=== PATIENT | female | born 1950 | race Caucasian/White ===

== ENCOUNTER 2023-08-21 06:00 | Outpatient (RCR) | payer MEDICARE, OTHER, SELFPAY | END 2023-08-23 23:59 | disposition home or self-care (01) | LOC: SPT 06:00 | PROVIDERS: Visit Provider Nurse Practitioner Family | DX: F44.4 Conversion disorder with motor symptom or deficit (principal) | CPT/HCPCS: 97161; 97530 ==

== ENCOUNTER 2023-08-24 06:00 | Outpatient (RCR) | payer MEDICARE, OTHER, SELFPAY | END 2023-09-23 23:59 | disposition home or self-care (01) | LOC: SPT 06:00 | PROVIDERS: Visit Provider Nurse Practitioner Family | DX: F44.4 Conversion disorder with motor symptom or deficit (principal) | CPT/HCPCS: 97110; 97140; 97530 ==

== ENCOUNTER 2023-09-12 12:27 | Outpatient (CLI) | payer MEDICARE, OTHER, SELFPAY ==
--- NOTE | 2023-09-12 | MM_ITS ---
WS: [id number] BILATERAL SCREENING DIGITAL TOMOSYNTHESIS MAMMOGRAM WITH CAD HISTORY: SCREENING COMPARISON: 06/17/2019, 06/17/2018 Bilateral CC and MLO views with tomosynthesis and synthetic mammography submitted. Computer aided det ection analyzed. Breast composition: The breasts are heterogeneously dense, which may obscure small masses. No suspici ous masses, microcalcifications or architectural distortion. Scattered asymmetries and calcifications and masses within each breast are stable. IMPRESSION: MM/[place] [id number] BI-RADS: 2-Benign FOLLOW UP: 1 Year Follow-up
== END 2023-09-12 12:28 | disposition home or self-care (01) ==
LOC: MOBLMAM 12:34
PROVIDERS: Visit Provider Nurse Practitioner Family
DX: Z12.31 Encounter for screening mammogram for malignant neoplasm of breast (principal)
CPT/HCPCS: 77063; 77067

== ENCOUNTER 2023-09-24 06:00 | Outpatient (RCR) | payer MEDICARE, OTHER, SELFPAY | END 2023-10-21 12:15 | disposition home or self-care (01) | LOC: SPT 06:00 | PROVIDERS: Visit Provider Nurse Practitioner Family | DX: F44.4 Conversion disorder with motor symptom or deficit (principal) | CPT/HCPCS: 97140 ==

== ENCOUNTER 2024-03-22 06:00 | Outpatient (RCR) | payer MEDICARE, OTHER, SELFPAY | END 2024-03-23 23:59 | disposition home or self-care (01) | LOC: SPT 06:00 | PROVIDERS: Visit Provider Nurse Practitioner Family | DX: M54.30 Sciatica, unspecified side (principal) | CPT/HCPCS: 97140; 97161 ==

== ENCOUNTER 2024-03-24 06:00 | Outpatient (RCR) | payer MEDICARE, OTHER, SELFPAY | END 2024-04-23 23:59 | disposition home or self-care (01) | LOC: SPT 06:00 | PROVIDERS: Visit Provider Nurse Practitioner Family | DX: M54.30 Sciatica, unspecified side (principal) | CPT/HCPCS: 97110; 97116; 97140 ==

== ENCOUNTER 2024-04-24 06:00 | Outpatient (RCR) | payer MEDICARE, OTHER, SELFPAY | END 2024-05-23 23:59 | disposition home or self-care (01) | LOC: SPT 06:00 | PROVIDERS: Visit Provider Nurse Practitioner Family | DX: M54.50 Low back pain, unspecified (principal); G89.29 Other chronic pain; R26.89 Other abnormalities of gait and mobility | CPT/HCPCS: 97110 ==

== ENCOUNTER 2024-05-24 06:00 | Outpatient (RCR) | payer MEDICARE, OTHER, SELFPAY | END 2024-06-23 23:59 | disposition home or self-care (01) | LOC: SPT 06:00 | PROVIDERS: PCP Nurse Practitioner Family; Visit Provider Nurse Practitioner Family | DX: M54.30 Sciatica, unspecified side (principal) | CPT/HCPCS: 20560; 97110 ==

== ENCOUNTER → 2024-06-14 12:11 | Outpatient (BNVA) | payer MEDICARE, OTHER, SELFPAY | PROVIDERS: PCP Nurse Practitioner Family; Visit Provider Specialist | DX: M17.12 Unilateral primary osteoarthritis, left knee (principal) | CPT/HCPCS: 36415; 73560; 73565; 80053; 81001; 83036; 85025 ==

== ENCOUNTER 2024-06-24 06:00 | Outpatient (RCR) | payer MEDICARE, OTHER, SELFPAY | END 2024-07-24 23:59 | disposition home or self-care (01) | LOC: SPT 06:00 | PROVIDERS: PCP Nurse Practitioner Family; Visit Provider Nurse Practitioner Family | DX: M54.30 Sciatica, unspecified side (principal) | CPT/HCPCS: 97110 ==

== ENCOUNTER 2024-07-25 06:00 | Outpatient (RCR) | payer MEDICARE, SELFPAY | END 2024-08-23 23:59 | disposition home or self-care (01) | LOC: SPT 06:00 | PROVIDERS: PCP Nurse Practitioner Family; Visit Provider Nurse Practitioner Family | DX: M54.30 Sciatica, unspecified side (principal) | CPT/HCPCS: 97110; 97140 ==

== ENCOUNTER 2024-08-24 06:00 | Outpatient (RCR) | payer MEDICARE, SELFPAY | END 2024-09-23 23:59 | disposition home or self-care (01) | LOC: SPT 06:00 | PROVIDERS: PCP Nurse Practitioner Family; Visit Provider Nurse Practitioner Family | DX: M54.30 Sciatica, unspecified side (principal) | CPT/HCPCS: 97110; 97140; 97530 ==

== ENCOUNTER → 2024-09-20 11:16 | Outpatient (BNVA) | payer MEDICARE, OTHER, SELFPAY | PROVIDERS: PCP Nurse Practitioner Family; Visit Provider Family Medicine | DX: Z01.818 Encounter for other preprocedural examination (principal); I49.8 Other specified cardiac arrhythmias | CPT/HCPCS: 81003; 93005 ==

== ENCOUNTER 2024-09-24 06:00 | Outpatient (RCR) | payer MEDICARE, OTHER, SELFPAY | END 2024-10-23 23:59 | disposition home or self-care (01) | LOC: SPT 06:00 | PROVIDERS: PCP Nurse Practitioner Family; Visit Provider Nurse Practitioner Family | DX: M54.30 Sciatica, unspecified side (principal) | CPT/HCPCS: 97140 ==

== ENCOUNTER 2024-10-05 08:33 | Outpatient (CLI) | payer MEDICARE, SELFPAY ==
--- NOTE | 2024-10-05 08:35 | CT_ITS ---
WS: [id number] CT LEFT knee, noncontrast HISTORY: per [facility] protocol TECHNIQUE: Protocol for [facility] total knee replacement has been obtained. This includes axial imaging th rough the LEFT hip, LEFT knee and LEFT ankle. DLP: 993.64 mGy.cm COMPARISON: Radiograph 06/14/2024 Pelvis: No bone destruction. Calcified fibroid in the posterior uterus. LEFT knee: Moderate to advanced tricompartment osteoarthritis. Marginal osteophytes. No fractures or destructive bone lesions. LEFT ankle: Negative. CT/CT knee [facility] [id number] IMPRESSION: CT imaging provided for [facility] robotic total knee replacement.
== END 2024-10-05 08:34 | disposition home or self-care (01) ==
LOC: OR 08:33
PROVIDERS: PCP Nurse Practitioner Family; Visit Provider Specialist
DX: M17.12 Unilateral primary osteoarthritis, left knee (principal); M25.762 Osteophyte, left knee; Z01.818 Encounter for other preprocedural examination
CPT/HCPCS: 73700; 80053; 85025

== ENCOUNTER → 2024-10-06 13:27 | Outpatient (BNVA) | payer MEDICARE, SELFPAY | PROVIDERS: PCP Nurse Practitioner Family; Visit Provider Specialist | DX: M17.12 Unilateral primary osteoarthritis, left knee (principal) | CPT/HCPCS: 73560; 73565; 99214 ==

== ENCOUNTER 2024-10-07 09:18 | Outpatient (CLI) | payer MEDICARE, OTHER, SELFPAY ==
--- NOTE | 2024-10-07 09:30 | MM_ITS ---
WS: [id number] BILATERAL SCREENING DIGITAL TOMOSYNTHESIS MAMMOGRAM WITH CAD HISTORY: SCREENING COMPARISON: 09/12/2023, 06/17/2019 Bilateral CC and MLO views with tomosynthesis and synthetic mammography submitted. Computer aided det ection analyzed. Breast composition: The breasts are heterogeneously dense, which may obscure small masses. No suspici ous masses, microcalcifications or architectural distortion. Long-term stability partially obscured m ass in the lateral RIGHT breast. Benign calcifications in each breast. MM/MM scr BI tomosynthesis [id number] IMPRESSION: BI-RADS: 2 - Benign FOLLOW UP: 1 Year Follow-up
== END 2024-10-07 09:19 | disposition home or self-care (01) ==
PROVIDERS: PCP Nurse Practitioner Family; Visit Provider Nurse Practitioner Family
DX: Z12.31 Encounter for screening mammogram for malignant neoplasm of breast (principal); R92.333 Mammographic heterogeneous density, bilateral breasts; R92.1 Mammographic calcification found on diagnostic imaging of breast
CPT/HCPCS: 77063; 77067

== ENCOUNTER 2024-10-12 14:46 | Observation (INO) | payer MEDICARE, OTHER, SELFPAY ==
[2024-10-12] VITALS (16 sets, daily range): BP systolic 101–150; BP diastolic 61–87; PULSE 59–94; RESP 14–20; TEMP 35.8–36.8; O2SAT 93–99; BMI 35.3
[2024-10-12 10:01] LABS: Glucose Point of Care 99 mg/dL (70-110)
[2024-10-12] MEDS: sodium chloride 0.9% 1,000 ML 30 ML IV (10:15)
--- NOTE | 2024-10-12 10:29 | ANES.PREANE2 ---
Pre-Anesthetic Assessment Height/Weight: Height 1.68 m Weight 99.337 kg Temp Pulse Resp BP Pulse Ox O2 Del Method 97.6 F 76 16 128/86 95 Room Air 10/12/24 09:17 10/12/24 09:17 10/12/24 09:17 10/12/24 09:17 10/12/24 09:17 10/12/24 09:42 Operation Date: 10/12/24 11:05 Proposed Procedures p Preston Robot Total Knee Arthroplasty(Left) - Carolina Fam MD Operation Date: 10/12/24 10:55 Proposed Procedures p Preston Robot Total Knee Arthroplasty(Not Applicable) - Carolina Fam MD Familial anesthetic complications: none Was Beta Dawit taken within 24 hours: N/A Was Clonidine taken within 24 hours: N/A Last intake: Intake Last Liquid Date 10/11/24 Last Liquid Time 23:55 Last Solid Date 10/11/24 Last Solid Time 18:30 Social No alcohol and No tobacco Exam alert, oriented x 3, clear to auscultation bilaterally and regular rate & rhythm Airway Mallampati: Class II CV/HEM Hypertension GI Gastroesophageal Reflux Disease Metabolic Diabetes Mellitus, Morbid Obesity and Thyroid Disease Anesthetic Plan ASA status: 3 Anesthesia: Regional (specify below) Risk of > 500 ml blood loss (7ml/kg in children): No Medications/Allergies Home Medications Medication Instructions Recorded Confirmed Last Taken Type levothyroxine 150 mcg capsule 150 mcg PO DAILY 06/14/24 10/11/24 10/11/24 History losartan 50 mg tablet 50 mg PO DAILY 06/14/24 10/11/24 10/11/24 History metformin 500 mg tablet 500 mg PO BID 06/14/24 10/11/24 10/11/24 History olmesartan 5 mg tablet 5 mg PO DAILY 06/14/24 10/11/24 10/11/24 History omeprazole 40 mg capsule,delayed 40 mg PO BID 06/14/24 10/11/24 10/11/24 History release potassium chloride 10 mEq oral 10 meq PO DAILY 06/14/24 10/11/24 10/11/24 History packet aspirin 81 mg tablet,delayed 81 mg PO DAILY 09/20/24 10/11/24 10/06/24 History release Allergies Allergy/AdvReac Type Severity Reaction Status Date / Time Opioids - Morphine Analogues Allergy Mild rash Verified 10/11/24 12:38 oxycodone [From Percocet] Allergy Mild ADR-Gastrointestinal Verified 10/11/24 12:38 Upset hydrocodone Allergy ADR/ALGY-Pa Verified 10/12/24 09:20 lpitations codine Allergy Mild ADR-Chest Uncoded 10/06/24 13:09 Pain tramadol Allergy Mild ADR-Gastrointestinal Uncoded 10/06/24 13:09 Upset [facility] Anesthesia Social History Smoking and tobacco/nicotine status: never used tobacco/nicotine Data Anesthesia Cardiac Studies: No Data to Display
--- NOTE | 2024-10-12 10:29 | ANES.PROC ---
Anesthesia Procedures Procedure/Date: 10/12/24 Nerve Block ^: Nerve Block 1: Main Anesthesia: spinal anesthesia block Time Out Performed: Yes Consent: requested by attending/covering physician, from patient, from other, risks and benefits reviewed and patient agrees to proceed Nerve block location: adductor canal (L) Anesthesia monitors applied: pulse oximetry, EKG, BP cuff and oxygen Nerve block position: supine Anesthetic Used: ropivicaine 0.5% (20 ml) and with decadron (3 mg) Ultrasound used to: recognize landmarks and visualize and ID femerol nerve Interscalene/Femoral BLK: 4 stimuplex 21 g needle used for position and inplane approach, visualize local anesthetic spread and no vascular puncture identified Injection: neg aspiration of heme Patient Tolerated Procedure: well Complications: none
[2024-10-12] MEDS: acetaminophen 1,000 MG/100 ML PIGGYBACK 400 MG IV ×2 (10:32→17:12)
[2024-10-12] MEDS: CELEcoxib 200 mg Capsule 400 MG PO (10:33)
[2024-10-12] MEDS: gabapentin 300 mg Capsule PO (10:35)
--- NOTE | 2024-10-12 10:39 | SUR.PREOP ---
LEFT ADDUCTOR NERVE BLOCK PERFORMED BY DOCTOR Webster USING 20ml OF 5% ROPIVACAINE WITH 3mg OF DECADRON. PT ON DOCUMENT MANAGEMENT TECHNICIAN SHOWING NSR, AND O2 AT 2L/M VIA NASAL CANNULA.
--- NOTE | 2024-10-12 10:55 | W.PM.OPSUD ---
Surgery/Procedure H&P Update DATE OF PROCEDURE: October 12, 2024 DATE H&P PERFORMED: 10/06/24 H&P UPDATE INFORMATION: I have reviewed H&P completed within last 30 days, I have examined patient prior to procedure, No changes to prior documentation and H&P is in [facility] EMR on date indicated PRIMARY INDICATION FOR PROCEDURE: Primary osteoarthritis left knee PLANNED PROCEDURE: Operation Date: 10/12/24 11:05 Proposed Procedures p Preston Robot Total Knee Arthroplasty(Left) - Carolina Fam MD Operation Date: 10/12/24 10:55 Proposed Procedures p Preston Robot Total Knee Arthroplasty(Not Applicable) - Carolina Fam MD Related Problem List Diagnoses (1) Primary osteoarthritis of left knee:
[2024-10-12] MEDS: midazolam 1 mg/mL INJ 2 mL 2 MG IVP (11:06)
[2024-10-12] MEDS: ceFAZolin 2,000 mg SDV 2000 MG IVP ×2 (12:00→20:01)
[2024-10-12] MEDS: tranexamic acid 1,000 mg/10mL SDV 1000 MG IV (12:38)
[2024-10-12] MEDS: ceFAZolin 1,000 mg SDV 2000 MG IRRIGATION (13:09)
[2024-10-12] MEDS: VANCOMYCIN ADD-Vantage 1,000 MG VIAL 1000 MG XX (13:10)
[2024-10-12] MEDS: BUPivacaine liposome 13.3 mg/mL SDV 20 mL 266 MG XX (13:11)
--- NOTE | 2024-10-12 14:53 | XR_ITS ---
WS: [id number] Exam: XR knee LT 1-2V [id number] Date/Time of Exam: 10/12/2024 3:14 PM Reason For Exam: Left total knee LEFT total knee arthroplasty is in place in satisfactory position. Postoperative changes in the adjac ent soft tissues. XR/XR knee LT 1-2V [id number] IMPRESSION: 1. LEFT total knee replacement in satisfactory position.
--- NOTE | 2024-10-12 14:56 | PM.OP ---
Operative Report Date of procedure: October 12, 2024 Pre-op diagnosis: Primary osteoarthritis left knee with flexion contracture Post-op diagnosis: Primary osteoarthritis left knee with flexion contracture Post-op findings: Primary osteoarthritis left knee with flexion contracture and osteopenia Procedure done: Left total knee arthroplasty with Preston guidance with lateral release Implants: The Jeaneth total knee system with a size 4 triathlon beaded cruciate retaining femur left, a triathlon titanium tibial component size 4 beaded, a triathlon X3 tibial bearing CS insert size 4x12 mm and a beaded triathlon titanium asymmetric patella size 35 x 10 mm Specimens removed/disposition: Bone, disposed of Pathology: None Surgeon: Carolina Fam MD Commercial Sales Representative: Lizzeth Ruiz Commercial Sales Representative: Whose services were required for retraction, positioning, intraoperative exposure, and closure Anesthesia: MAC and Spinal (With preoperative adductor block, ASA 3) Estimated blood loss (mL): 100 Tourniquet time (min): 0 (Not utilized) IV fluids (mL): 800 Urine output (mL): 200 Complications: None Findings: Severe degenerative osteoarthritis with varus deformity and flexion contracture. Condition: stable Disposition: PACU (Then admit to the hospital under observation status for postoperative rehabilitation and pain management) Brief History: This 74-year-old woman presented to the office with complaints of left knee pain. She is status post right total knee arthroplasty remotely, and she has concerns regarding proceeding. She has been unresponsive to conservative measures and has had significant limitations in her activities of daily living. After discussion, she wished to proceed with left total knee arthroplasty. Risks and complications were discussed with her. Consents were signed. Procedure: The patient was brought to the operating theater, and after undergoing spinal anesthesia with MAC, ASA 3, which followed preoperative adductor block, the left lower extremity was prepped with Dura-Prep and draped in usual fashion following placement of a tourniquet high on the leg. The leg was then draped free.? Tourniquet was not elevated throughout the surgical procedure. Prior to commencement of the procedure, a surgical pause was performed, and at the time of the surgical pause, we confirmed the site and side of surgery. Additionally, we confirmed the appropriate and timely administration of preoperative antibiotics, Ancef 2 g.? The availability of equipment was confirmed, and the patient's identity was verbalized as well. Following the surgical pause, an incision was made centering over the patella continuing proximally and distally as necessary to allow access to the knee joint. Dissection continued through skin and soft tissues using a scalpel. Hemostasis was obtained using electrocautery. The skin incision was followed by a median parapatellar arthrotomy. The leg was extended and the patella was able to be displaced laterally.? Appropriate arrays and markers were placed in appropriate position for use of the Preston.? Preoperative planning had been accomplished and was discussed in detail with the [facility] training representative.? Intraoperative mapping of the femur and tibia was accomplished after the arrays were placed.? Internal markers were also placed.? Once we had accomplished the Preston mapping, we began the appropriate resections for placement of the prosthesis.? The plan was for a cruciate retaining left total knee arthroplasty. Once appropriate mapping had been accomplished retraction was established using manual retraction by surgical technicians and also the [facility] leg positioner and retractors.? The knee was evaluated.? There was significant osteoarthritic change as well as a significant flexion contracture and severe varus deformity.? Appropriate bone resection was accomplished using the Preston.? The femur was sized to a size 4.? Following femoral cuts, attention was directed to the tibia.? Osteophytes were removed prior to this portion of the procedure.? We had performed a medial release at the beginning of the procedure to allow for placement of the array.? Proximal tibia was evaluated, and it was felt that appropriate size for the tibia was a size 4.? Tray was noted to fit nicely with good coverage.? Rim fit was accomplished with the size 4. A trial reduction was accomplished after osteophytes have been removed as well as the medial and lateral menisci.? We had removed the anterior cruciate ligament at the beginning of the case and preserved the posterior cruciate ligament.? Trial reduction was accomplished with a size 4 femoral cruciate retaining component, a size 4 tibial tray and a size 4 CS tibial bearing insert which was 9 mm. We increased this to a size 11 mm for trial and actual implant was a size 12 mm tibial insert. Alignment was felt to be appropriate as well.? Lateral release was required due to patellar tracking. Trial components were removed after the femur had been drilled.? Prior to removal of the tibial tray which had been pinned in position with appropriate rotation as determined by the Preston plan, we broached the tibia.? Subsequently, the 4 drill holes were made for the prosthetic component.? All trial components were removed, and the wound was irrigated.? Plans were made for insertion of the prosthetic components.? Prior to this, the patella was manually prepared.? After resection of the articular surface with the jogging system, it was measured and measured a 35 mm patella.? We resected approximately 10 mm of patella.? Patellar height was restored with the patellar component. Once again, the wound was irrigated. The Tritanium tibia was impacted into position.? The beaded femur was then impacted into position in a cementless fashion. The CS tibial insert was placed prior to placement of the femoral component. The patella was pressed into position with a patellar clamp.? Exparel was injected about the components deep and superficially.? The knee was then copiously irrigated with betadine and saline and suctioned dry. Attention was then directed to closure. Closure was accomplished with 0 Vicryl in the fascial tissues.? The suture line of 0 Vicryl was supplemented with strata fix, #1, with a running suture from proximal to distal and a second running stitch from distal to proximal.? This was followed by Surgiflo and vancomycin powder.? Following this, a 2-0 Strata Fix was used in the subcutaneous tissues, and the skin was closed with 3-0 Strata fix.? Care was taken to assure an excellent subcutaneous as well as skin closure.? A sterile dressing was then placed consisting of Dermabond Prineo, OpSite, ABD, sterile soft roll, and an Brett wrap including over the foot. The patient was returned the Recovery Room in a satisfactory condition. X-rays were obtained and reviewed there.? The patient will be discharged to the floor for postoperative rehabilitation and pain management. Related Problem List Diagnoses (1) Primary osteoarthritis of left knee:
--- NOTE | 2024-10-12 15:34 | PC.NURSE ---
1525 - left shoulder pain reported to anesthesa - pt assessed - per anesthesia pain d/t positioning - ice pack provided
--- NOTE | 2024-10-12 15:45 | ANE.PACU2 ---
Inpatient post-anesthesia follow up: Airway intact: Yes Vital signs: Temperature 97.6 F Pulse Rate 63 Respiratory Rate 19 Blood Pressure 114/68 Pulse Oximetry 98 Oxygen Delivery Me thod Nasal Cannula Oxygen Flow Rate 3 Fraction of Inspir ed Oxygen Hydration adequate: Yes Nausea and vomiting: No Pain level: 1 Mental status: Baseline
--- NOTE | 2024-10-12 15:56 | PC.NURSE ---
1551- Accepted onto floor per Lizzeth - Left knee dressing c/d/i with pt unable to wiggle toes - ppp - 1st ice on knee - VS 110/74 - pulse 60 - 02 95% 2LNC - temp 97.5 - family at side
[2024-10-12] MEDS: metformin 500 mg Tablet PO (17:01)
[2024-10-12] MEDS: sennosides-docusate Tablet 2 TAB PO (17:01)
[2024-10-12] MEDS: calcium carbonate 500 mg Chew Tablet 1000 MG PO ×2 (17:01→17:04)
[2024-10-12] MEDS: oxyCODONE 5 mg IR Tab/Cap PO ×2 (17:01→21:23)
[2024-10-12] MEDS: pantoprazole DR 40 mg Tablet PO (17:01)
[2024-10-12] MEDS: mupirocin oint 22 gm 1 APPLIC NASAL (17:01)
[2024-10-12] MEDS: iron polysaccharide complex 150 mg Capsule PO (17:01)
[2024-10-12] MEDS: sodium chloride 0.9% 1,000 ML 100 ML IV (17:02)
[2024-10-12] MEDS: chlorhexidine gluconate 0.12% Btl 473 mL 30 ML MUCOUS MEM ×2 (17:10→20:03)
--- NOTE | 2024-10-12 18:10 | PC.NURSE ---
Pt states that she is in severe pain. She requests Fentanyl in the IV. This RN educates patient on post-op pain management. Pt states she wants to be doped up and not feel a thing. Lizzeth Ruiz and Dr. Fam round on the pt and educate on pain management. Plan is to continue with current orders.
[2024-10-12] MEDS: ondansetron 2 mg/ML SDV 2 mL 4 MG IVP (20:01)
[2024-10-12] MEDS: tranexamic acid 1,000 MG/100 ML PREMIX 600 MG IV (20:02)
[2024-10-12] MEDS: TRAMadol 50 mg Tablet PO (20:02)
[2024-10-13] VITALS (10 sets, daily range): BP systolic 114–130; BP diastolic 52–72; PULSE 64–76; RESP 16–18; TEMP 35.7–36.5; O2SAT 93–98
[2024-10-13] MEDS: oxyCODONE 5 mg IR Tab/Cap PO ×4 (01:21→13:39)
[2024-10-13] MEDS: sodium chloride 0.9% 1,000 ML 100 ML IV (01:23)
[2024-10-13] MEDS: acetaminophen 1,000 MG/100 ML PIGGYBACK 400 MG IV ×2 (01:24→09:39)
[2024-10-13] MEDS: ceFAZolin 2,000 mg SDV 2000 MG IVP (05:22)
[2024-10-13 05:42] LABS: Basophils % 0.3 %; Eosinophils % 0.1 %; Lymphocytes # 0.6 10^3/uL (0.8-4.8); Lymphocytes % 5.9 %; Mean Corpuscular HGB Conc 31.8 g/dL (30-55); Mean Corpuscular Hemoglobin 26.9 pg (27-33); Mean Corpuscular Volume 84.8 fl (85-98); Mean Platelet Volume 9.9 fL (7.4-10.4); Monocytes # 0.8 10^3/uL (0.2-0.9); Monocytes % 8.2 %; Neutrophils # 8.58 10^3/uL (1.8-7.7); Neutrophils % 85.2 %; Nucleated Red Blood Cells % 0 %; Platelet Count 186 10^3/cmm (157-399); Red Blood Count 4.01 10^6/uL (3.85-5.65); Red Cell Distribution Width 13.3 % (12.1-15.1); White Blood Count 10.07 10^3/uL (3.29-11.43)
[2024-10-13 06:13] LABS: Blood Urea Nitrogen 14 mg/dL (8-23); Calcium 8.5 mg/dL (8.5-10.5); Carbon Dioxide 24 mmol/L (22-29); Chloride 109 mmol/L (98-107); Creatinine Clr Calc Pharmacy 74.4649; Glucose 157 mg/dL (65-115); Osmolality Calculated 298 mOsm/kg (285-295); Sodium 142 mmol/L (136-145)
[2024-10-13] MEDS: cholecalciferol (vitamin D3) 1,000 unit Tablet 1000 UNIT PO (08:05)
[2024-10-13] MEDS: metformin 500 mg Tablet PO (08:05)
[2024-10-13] MEDS: TRAMadol 50 mg Tablet PO (08:05)
[2024-10-13] MEDS: pantoprazole DR 40 mg Tablet PO (08:05)
[2024-10-13] MEDS: potassium chloride ER 10 mEq Tablet PO (08:06)
[2024-10-13] MEDS: iron polysaccharide complex 150 mg Capsule PO (08:06)
[2024-10-13] MEDS: sennosides-docusate Tablet 2 TAB PO (08:06)
[2024-10-13] MEDS: levothyroxine 150 mcg Tablet PO (08:06)
[2024-10-13] MEDS: losartan 50 mg Tablet PO (08:06)
[2024-10-13] MEDS: multivitamin therapeutic Tablet 1 TAB PO (08:06)
[2024-10-13] MEDS: aspirin 325 mg EC Tablet PO (08:06)
[2024-10-13] MEDS: ondansetron 2 mg/ML SDV 2 mL 4 MG IVP (09:39)
--- NOTE | 2024-10-13 09:54 | PC.CHAP ---
Pastoral Care Encounter/Spiritual Assessment Type of Contact [] Declined hunting guide visit [] Patient/Family/Request visit [] Outpatient visit [] Follow-up visit [] Physician referral [] Code/Alert [x] Routine visit [] Staff referral [] Actively dying [] Patient sleeping [x] Family support [] [] Out of room [] Palliative care [] [] Receiving care in room [] Pre-surgical visit [] Trauma [] Long length of stay [] ICU visit [] Other: Relational/Emotional Strength [x] Patient feels connected with others/family/visitors/staff [] Distress [] Loneliness/isolation [] Abandonment Spirituality of Patient [x] Person of Yandy [] Attends Mosque of their Yandy [x] Believes in Prayer [] Reads Bible or Episcopalian materials [] There are Spiritual issues to be addressed [employer] Technology Teacher Interventions [x] Prayer [x] Active listening [] Non-anxious presence [x] Spiritual/emotional support [] Crisis/trauma care [] Spiritual counseling [] Bereavement support [] Provided bereavement packet [] Provided Bible/devotional materials [] Provided toy/stuffed animal, coloring book to patient or family member [] Provided Communion [] Anointing/[place] [] Salvation [x] Completed spiritual assessment [] Other: Impact on Illness or Injury [] Angry [] Fearful [] Anxious [] Often cries [] Exhaustion [] Unable to work [] Unable to attend temple [] Unable to walk/stand [] Unable to read [] Unable to drive [] Unable to eat/drink [] Unable to sleep [] Unable to be with family [] Patient intubated [] Other: Summary Time spent with patient 5 min
--- NOTE | 2024-10-13 13:58 | P.DS_ITS ---
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 using cement: Status: Acute Permanent problem details: Date of procedure: October 12, 2024 Diagnosis: Primary osteoarthritis left knee with flexion contracture Procedure done: Left total knee arthroplasty with Preston guidance with lateral release Implants: The HitchedPic total knee system with a size 4 triathlon beaded cruciate retaining femur left, a triathlon titanium tibial component size 4 beaded, a triathlon X3 tibial bearing CS insert size 4x12 mm and a beaded triathlon titanium asymmetric patella size 35 x 10 mm Reason for Visit Reason for Visit: Primary osteoarthritis of left knee Brief History: This 74-year-old woman presented to the office with complaints of left knee pain. She is status post right total knee arthroplasty remotely, and she has concerns regarding proceeding. She has been unresponsive to conservative measures and has had significant limitations in her activities of daily living. After discussion, she wished to proceed with left total knee arthroplasty. Ri sks and complications were discussed with her. Consents were signed. Hospital Course Hospital Course This 74-year-old woman was admitted for same-day surgery in the form of left total knee arthroplasty. She was admitted to the floor postoperatively under observation status. She did have a significant amount of pain postoperatively, but she describes significant pain with her prior total knee arthroplasty as well. This was under control by the first postoperative day. She worked with physical therapy. She was up in a chair. Plans were made for her discharge home. There was no evidence of DVT and no evidence of complication. Physical Exam Const: COMMON NORMALS: no acute distress, average body habitus, patient oriented x3 and alert GENERAL APPEARANCE: cooperative and comfortable ORIENTATION/CONSCIOUSNESS: Yes awake HENMT: COMMON NORMALS: normocephalic and atraumatic HEAD & SCALP: normocephalic and atraumatic Eye: GENERAL EYE: appearance normal, both eyes and all related structures Chest: COMMONS NORMALS: normal inspection of the chest Resp: COMMON NORMALS: normal respiratory effort EFFORT & INSPECTION: Yes able to speak in complete sentences and Yes symmetric chest movement Extremity: LEFT LOWER EXTREMITY: Yes knee joint (Brett wrap is removed. Dressing is dry and intact.) Left knee: Yes inspection (No significant swelling.), Yes ROM (Not evaluated.) and Yes neurovascular exam (Intact distally.) Neuro: COMMON NORMALS: patient oriented x3 SENSORIUM/ORIENTATION: Yes alert Psych: COMMON NORMALS: mental status grossly normal APPEARANCE: Yes grossly normal ATTITUDE: Yes calm and Yes engaged ATTENTION/CONCENTRATION: Yes attention grossly intact Skin: COMMON NORMALS: no rashes or lesions noted GENERAL SKIN EXAM: no rashes or lesions noted Urinary Catheter Management: Reis: Cath Placed During This Visit: yes, but has since been removed by the nurse Reason for Continuing Indwelling Catheter: Other Urinary Catheter Date of Insertion: 10/12/24 Urinary Catheter Time of Insertion: 12:21 Date Urinary Catheter Removed: 10/13/24 Time Urinary Catheter Discontinued: 06:55 Discharge Data Studies Completed and Pending Completed Studies During Hospitalization Category Date Time Status XR knee LT 1-2V [id number] Urgent Exams 10/12/24 14:53 Completed Radiology Impressions Knee X-Ray 10/12/24 14:53 IMPRESSION: 1. LEFT total knee replacement in satisfactory position. Laboratory Results WBC 10.07 10^3/uL (3.29-11.43) 10/13/24 05:24 RBC 4.01 10^6/uL (3.85-5.65) 10/13/24 05:24 Hgb 10.80 g/dL (11.27-16.99) L 10/13/24 05:24 Hct 34.0 % (36-47) L 10/13/24 05:24 MCV 84.8 fl (85-98) L 10/13/24 05:24 MCH 26.9 pg (27-33) L 10/13/24 05:24 MCHC 31.8 g/dL (30-55) 10/13/24 05:24 RDW 13.3 % (12.1-15.1) 10/13/24 05:24 Plt Count 186 10^3/cmm (157-399) 10/13/24 05:24 MPV 9.9 fL (7.4-10.4) 10/13/24 05:24 Neut % (Auto) 85.2 % 10/13/24 05:24 Lymph % (Auto) 5.9 % 10/13/24 05:24 Story % (Auto) 8.2 % 10/13/24 05:24 Eos % (Auto) 0.1 % 10/13/24 05:24 Baso % (Auto) 0.3 % 10/13/24 05:24 Neut # (Auto) 8.58 10^3/uL (1.8-7.7) H 10/13/24 05:24 Lymph # (Auto) 0.6 10^3/uL (0.8-4.8) L 10/13/24 05:24 Story # (Auto) 0.8 10^3/uL (0.2-0.9) 10/13/24 05:24 Eos # (Auto) 0.0 10^3/uL (0.0-0.8) 10/13/24 05:24 Baso # (Auto) 0.0 10^3/uL (0.0-0.1) 10/13/24 05:24 Nucleated RBC % (auto) 0 % 10/13/24 05:24 Nucleated RBCs # 0.0 /100WBC 10/13/24 05:24 Sodium 142 mmol/L (136-145) 10/13/24 05:24 Potassium 5.0 mmol/L (3.5-5.1) 10/13/24 05:24 Chloride 109 mmol/L (98-107) H 10/13/24 05:24 Carbon Dioxide 24 mmol/L (22-29) 10/13/24 05:24 Anion Gap 14.0 (5-19) 10/13/24 05:24 BUN 14 mg/dL (8-23) 10/13/24 05:24 Creatinine 0.8 mg/dL (0.5-0.9) 10/13/24 05:24 GFR Calculation Not Reportable 10/13/24 05:24 Glucose 157 mg/dL (65-115) H 10/13/24 05:24 POC Glucose 99 mg/dL (70-110) 10/12/24 09:54 Calculated Osmolality 298 mOsm/kg (285-295) H 10/13/24 05:24 Calcium 8.5 mg/dL (8.5-10.5) 10/13/24 05:24 Vitals Last Vital Signs Temp 97.7 F 10/13/24 11:33 Pulse 64 10/13/24 11:33 Resp 16 10/13/24 13:39 BP 125/52 10/13/24 11:33 Pulse Ox 97 10/13/24 11:33 O2 Del Method Room Air 10/13/24 11:33 O2 Flow Rate 3 10/12/24 15:42 Discharge Plan Discharge Patient Disposition: Home Health Service Condition: Stable Prescriptions: New acetaminophen 500 mg Tablet 1,000 mg PO Q8H 15 Days Qty: 90 0RF aspirin 325 mg Tablet,Delayed Release (Dr/Ec) 325 mg PO DAILY 30 Days Qty: 30 0RF oxycodone 5 mg Tablet 5 - 10 mg PO Q4H PRN (Reason: Moderate To Severe Pain) 7 Days Qty: 40 0RF Continued potassium chloride 10 mEq packet 10 meq PO DAILY metformin 500 mg tablet 500 mg PO BID levothyroxine 150 mcg capsule 150 mcg PO DAILY losartan 50 mg tablet 50 mg PO DAILY olmesartan 5 mg tablet 5 mg PO DAILY omeprazole 40 mg capsule,delayed release(DR/EC) 40 mg PO BID aspirin 81 mg tablet,delayed release (DR/EC) 81 mg PO DAILY Discharge Orders: Discharge Order (Routine); Ordered 10/13/24 Ordered By: Carolina Fam Other Ambulatory Orders: DME: [facility] (Order) Location: None Selected Ordered By: Carolina Fam Referrals: [facility] [Outside] Carolina Fam MD [Physician] - 10/27/24 11:00 am Keaton Diez [Primary Care Provider] - 10/15/24 3:10 pm () Discharge Diet: Advance as tolerated and Usual diet Discharge Activity: Resume usual activity, Increase activity as tolerated, Use walker/crutches as instructed and As per PT/OT instructions Patient Instructions: Aspirin (By mouth), Oxycodone, Rapid Release (By mouth), Acute Wound Care (DC), Total Knee Replacement (GEN), Opioid Safety, Post Anesthesia Care Activity Restrictions/Additional Instructions: Ice and elevation to right lower extremity. You may weight-bear as tolerated. Gait training, strengthening, and range of motion per physical therapy. Maintain current dressing until it comes off on its own or begins to leak while you are showering. You may shower but do not soak your knee in water. Discharge Attestations Time Spent in Discharge Care*: greater than 30 min Specific Discharge Activities: educating patient, educating and/or supporting family/caregiver, documenting/other paperwork and evaluating patient/reviewing data Quality Metrics Clinical Quality Measures [ No reported AMI, CVA or VTE this stay] Coding Level of Care Code Acute Code for Chg Fwd Diagnoses Primary osteoarthritis of left knee M17.12 Status post total left knee replacement not using cement Z96.652
== END 2024-10-13 15:55 | disposition home health service (06) ==
LOC: MEDSURG 14:46
PROVIDERS: Admitting Provider Specialist; PCP Nurse Practitioner Family; Visit Provider Specialist
PROC: 8E0Y0CZ Robotic Assisted Procedure of Lower Extremity, Open Approach (ICD-10-PCS; CPT 27447; principal; 2024-10-12 10:35)
DX: M17.12 Unilateral primary osteoarthritis, left knee (principal); M24.562 Contracture, left knee; M85.862 Other specified disorders of bone density and structure, left lower leg; I10 Essential (primary) hypertension; E11.9 Type 2 diabetes mellitus without complications; E66.01 Morbid (severe) obesity due to excess calories; Z68.36 Body mass index [BMI] 36.0-36.9, adult; K21.9 Gastro-esophageal reflux disease without esophagitis
CPT/HCPCS: 27447; 20985; 36415; 36416; 51702; 73560; 80048; 82962; 85025; 94640; 97110; 97116; 97161; 97167; 97535; C1776; C9290; G0378; J0131; J0690; J1100; J2250; J2405; J2704; J2795; J3010; J3370; J7030

== ENCOUNTER → 2024-10-28 10:30 | Outpatient (BNVA) | payer MEDICARE, OTHER, SELFPAY | PROVIDERS: PCP Nurse Practitioner Family; Visit Provider Specialist | DX: Z96.652 Presence of left artificial knee joint (principal); Z48.89 Encounter for other specified surgical aftercare; M17.12 Unilateral primary osteoarthritis, left knee | CPT/HCPCS: 73560; 73565; 99024 ==

== ENCOUNTER → 2024-12-15 14:03 | Outpatient (BNVA) | payer MEDICARE, OTHER, SELFPAY | PROVIDERS: PCP Nurse Practitioner Family; Visit Provider Specialist | DX: Z98.890 Other specified postprocedural states (principal); Z96.652 Presence of left artificial knee joint | CPT/HCPCS: 73560; 73565; 99024 ==

== ENCOUNTER 2024-12-25 06:30 | Outpatient (RCR) | payer MEDICARE, OTHER, SELFPAY | END 2025-01-21 23:59 | disposition home or self-care (01) | LOC: SPT 06:30 | PROVIDERS: Visit Provider Nurse Practitioner Family | DX: M54.50 Low back pain, unspecified (principal); M25.511 Pain in right shoulder | CPT/HCPCS: 97110; 97140; 97161; 97530 ==

== ENCOUNTER 2024-12-25 06:30 | Outpatient (RCR) | payer MEDICARE, OTHER, SELFPAY | END 2025-01-21 23:59 | disposition home or self-care (01) | LOC: SPT 06:30 | PROVIDERS: Visit Provider Specialist | DX: Z47.1 Aftercare following joint replacement surgery (principal); Z96.652 Presence of left artificial knee joint | CPT/HCPCS: 97110; 97140; 97161 ==

== ENCOUNTER → 2025-01-20 08:02 | Outpatient (BNVA) | payer MEDICARE, OTHER, SELFPAY | PROVIDERS: PCP Emergency Medicine Emergency Medical Services; Visit Provider Psychiatry & Neurology Neurology | DX: R25.9 Unspecified abnormal involuntary movements (principal); I63.9 Cerebral infarction, unspecified; R25.1 Tremor, unspecified | CPT/HCPCS: 99203 ==

== ENCOUNTER 2025-01-22 06:00 | Outpatient (RCR) | payer MEDICARE, OTHER, SELFPAY | END 2025-02-21 23:59 | disposition home or self-care (01) | LOC: SPT 06:00 | PROVIDERS: PCP Emergency Medicine Emergency Medical Services; Visit Provider Specialist | DX: Z47.1 Aftercare following joint replacement surgery (principal); Z96.652 Presence of left artificial knee joint | CPT/HCPCS: 97110; 97140; 97530 ==

== ENCOUNTER 2025-01-28 05:32 | Outpatient (RCR) | payer MEDICARE, OTHER, SELFPAY | END 2025-02-21 23:59 | disposition home or self-care (01) | LOC: SPT 05:32 | PROVIDERS: PCP Emergency Medicine Emergency Medical Services; Visit Provider Nurse Practitioner Family | DX: M54.50 Low back pain, unspecified (principal); M25.511 Pain in right shoulder | CPT/HCPCS: 97110; 97140; 97530 ==

== ENCOUNTER 2025-02-03 12:09 | Outpatient (CLI) | payer MEDICARE, OTHER, SELFPAY ==
--- NOTE | 2025-02-03 13:00 | MR_ITS ---
WS: [id number] MRI HEAD WITH CONTRAST TECHNIQUE: Sagittal T1, T2 axial, T2 axial FLAIR, axial susceptibility weighted imaging, axial diffusion weighted images, and coronal T2 images were obtained. Pre and post-T1 axial and post T1 coronal images. ADC and FSPGR images. CLINICAL INFORMATION: I63.9 - Cerebral infarction, unspecified COMPARISON: None. FINDINGS: No evidence of restricted diffusion to suggest acute ischemia. Ventricular system and basal cisterns are patent. Mild small vessel changes. Mild parenchymal volume loss. Chronic infarct LEFT parasagittal occipital lobe with encephalomalacia and gliosis. No hemosiderin on the susceptibility weighted images. No abnormal gadolinium enhancement. Normal optic chiasm and pituitary infundibulum. Mild atrophy RIGHT greater than LEFT temporal lobes and hippocampal formations. Normal visualized dural venous sinuses. MR/MR head wo/w con [id number] IMPRESSION: 1. No evidence of restricted diffusion to suggest acute ischemia. 2. Chronic infarct LEFT parasagittal occipital lobe with encephalomalacia and gliosis. 3. Mild small vessel changes. Mild parenchymal volume loss. 4. Chronic lacunar infarct LEFT thalamus. 5. No abnormal gadolinium enhancement. 6. Mild atrophy RIGHT greater than LEFT hippocampal formations.
[2025-02-03] MEDS: gadobenate dimeglumine 20 mL vial IV (13:38)
== END 2025-02-03 12:10 | disposition home or self-care (01) ==
LOC: RAD 12:11
PROVIDERS: PCP Emergency Medicine Emergency Medical Services; Visit Provider Psychiatry & Neurology Neurology
DX: I63.9 Cerebral infarction, unspecified (principal); I67.82 Cerebral ischemia; R93.0 Abnormal findings on diagnostic imaging of skull and head, not elsewhere classified; G31.89 Other specified degenerative diseases of nervous system
CPT/HCPCS: 70553

== ENCOUNTER → 2025-02-09 13:23 | Outpatient (BNVA) | payer MEDICARE, OTHER, SELFPAY | PROVIDERS: PCP Emergency Medicine Emergency Medical Services; Visit Provider Specialist | DX: Z96.652 Presence of left artificial knee joint (principal) | CPT/HCPCS: 73560; 73565; 99213 ==

== ENCOUNTER 2025-02-22 05:00 | Outpatient (RCR) | payer MEDICARE, OTHER, SELFPAY | END 2025-03-03 07:26 | disposition home or self-care (01) | LOC: SPT 05:00 | PROVIDERS: PCP Emergency Medicine Emergency Medical Services; Visit Provider Nurse Practitioner Family | DX: M54.50 Low back pain, unspecified (principal); M25.511 Pain in right shoulder | CPT/HCPCS: 97530 ==

== ENCOUNTER 2025-02-22 06:00 | Outpatient (RCR) | payer MEDICARE, OTHER, SELFPAY | END 2025-03-03 07:43 | disposition home or self-care (01) | LOC: SPT 06:00 | PROVIDERS: PCP Emergency Medicine Emergency Medical Services; Visit Provider Specialist | DX: Z47.1 Aftercare following joint replacement surgery (principal); Z96.652 Presence of left artificial knee joint | CPT/HCPCS: 97110; 97116; 97140; 97530 ==

== ENCOUNTER 2025-02-22 06:30 | Outpatient (RCR) | payer MEDICARE, OTHER, SELFPAY | END 2025-03-23 23:55 | disposition home or self-care (01) | LOC: SPT 06:30 | PROVIDERS: PCP Emergency Medicine Emergency Medical Services; Visit Provider Nurse Practitioner Family | DX: N39.3 Stress incontinence (female) (male) (principal) | CPT/HCPCS: 97110; 97161; 97530 ==

== ENCOUNTER → 2025-03-17 09:19 | Outpatient (BNVA) | payer MEDICARE, OTHER, SELFPAY | PROVIDERS: PCP Emergency Medicine Emergency Medical Services; Referring Provider Psychiatry & Neurology Neurology; Visit Provider Psychiatry & Neurology Neurology | DX: R56.9 Unspecified convulsions (principal) | CPT/HCPCS: 95813 ==

== ENCOUNTER 2025-03-24 13:07 | Outpatient (RCR) | payer MEDICARE, OTHER, SELFPAY | END 2025-04-21 13:57 | disposition home or self-care (01) | LOC: SPT 13:07 | PROVIDERS: PCP Emergency Medicine Emergency Medical Services; Visit Provider Nurse Practitioner Family | DX: N39.3 Stress incontinence (female) (male) (principal) | CPT/HCPCS: 97140; 97530 ==

== ENCOUNTER → 2025-05-11 17:01 | Outpatient (BNVA) | payer MEDICARE, OTHER, SELFPAY | PROVIDERS: PCP Emergency Medicine Emergency Medical Services; Visit Provider Psychiatry & Neurology Neurology | DX: R25.1 Tremor, unspecified (principal); R25.9 Unspecified abnormal involuntary movements; E56.9 Vitamin deficiency, unspecified | CPT/HCPCS: 36415; 82306; 82607; 82746; 83735; 83921; 84425; 84439; 84443; 99212 ==

== ENCOUNTER 2025-05-24 06:30 | Outpatient (RCR) | payer MEDICARE, OTHER, SELFPAY | END 2025-06-23 23:59 | disposition home or self-care (01) | LOC: SPT 06:30 | PROVIDERS: PCP Emergency Medicine Emergency Medical Services; Visit Provider Psychiatry & Neurology Neurology | DX: R27.0 Ataxia, unspecified (principal); R48.2 Apraxia; R25.1 Tremor, unspecified; R25.9 Unspecified abnormal involuntary movements; R26.81 Unsteadiness on feet | CPT/HCPCS: 97140; 97162; 97530 ==

== ENCOUNTER 2025-05-24 13:53 | Outpatient (CLI) | payer MEDICARE, OTHER, SELFPAY ==
--- NOTE | 2025-05-24 14:30 | MR_ITS ---
WS: [id number] MRI CERVICAL SPINE NONCONTRAST HISTORY: R25.1 - Tremor, unspecified COMPARISON: None available. Technique: Multiplanar, multisequence noncontrast imaging of the cervical spine. Mild increase in the cervical lordosis. Posterior alignment is normal. Signal within the cervical cord is normal. Visualized posterior fossa is unremarkable. Craniocervical junction, C1 and C2 relationship, odontoid process and soft tissues are normal. Cerebellar atrophy with increased CSF surrounding the cerebellum. C2-C3: Normal. C3-C4: Small bilateral foraminal osteophytes, LEFT greater than RIGHT. No stenosis. C4-C5: Mild disc bulging and mild facet arthritis. No stenosis. C5-C6: Mild annular disc bulging with a tiny central disc protrusion effacing CSF. Mild facet arthritis. Very mild central stenosis. C6-C7: Mild annular disc bulging no stenosis. C7-T1: Normal. Paraspinal soft tissue are normal. MR/MR cervical spin wo con* [id number] IMPRESSION: 1. No signal abnormality within the cervical cord. 2. Mild central stenosis with a tiny disc protrusion at C5-6. 3. Small foraminal osteophytes at C3-4, LEFT greater than RIGHT. No stenosis.
--- NOTE | 2025-05-24 15:15 | MR_ITS ---
WS: [id number] MRI THORACIC SPINE noncontrast HISTORY: R25.1 - Tremor, unspecified COMPARISON: None available. TECHNIQUE: Multiplanar sequences are performed in sagittal and axial planes. Moderate increase in thoracic kyphosis. Signal within the cord is normal. No marrow edema or acute fracture. Very mild anterior wedging of T2. T1-2: Normal. T2-3: Bilateral facet joint arthritis, RIGHT greater than LEFT. T3-4: Mild facet arthritis. T4-5: Normal. T5-6: Normal. T6-7: Normal. T7-8: Normal. T8-9: Bilateral facet joint arthropathy. T9-10: Bilateral facet joint arthropathy. Mild foraminal narrowing. T10-11: Mild bilateral facet arthritis. T11-12: Normal. Normal adrenal glands. MR/MR thoracic spin wo con* [id number] IMPRESSION: 1. No acute thoracic spine fracture. 2. Mild increase in thoracic kyphosis. 3. No high-grade central or foraminal stenosis. 4. Bilateral facet arthritis as above. Most significant facet joint arthritis on the RIGHT at T2-3.
--- NOTE | 2025-05-24 16:00 | MR_ITS ---
WS: [id number] MRI LUMBAR SPINE NONCONTRAST HISTORY: R25.1 - Tremor, unspecified COMPARISON: None available. TECHNIQUE: Sagittal and axial multisequence imaging is submitted. Mild LEFT curvature lumbar spine. No marrow edema or acute fracture. Mild disc space narrowing at L5-S1. The remaining disc spaces are well preserved. Conus terminates normally at L1-2 disc level. T12-L1: Bilateral mild facet arthritis. Mild bilateral foraminal stenosis. L1-L2: Mild facet arthritis. No stenosis. L2-L3: Normal. L3-L4: Mild disc bulging with ligamentum flavum and facet arthritis. Shallow RIGHT foraminal disc protrusion. There is mild disc contact on the exiting RIGHT L3 nerve root. Mild RIGHT foraminal stenosis. Mild central and subarticular recess encroachment. L4-L5: Diffuse annular disc bulge with a central broad-based disc protrusion and RIGHT foraminal disc protrusion. Ligamentum flavum and facet arthritis contributing to the central stenosis. Moderate central and bilateral subarticular recess stenosis. There is disc encroachment upon the traversing L5 nerve roots, RIGHT greater than LEFT. Mild RIGHT foraminal stenosis and slight disc contact on the exiting RIGHT L4 nerve root. L5-S1: Diffuse annular disc bulging with facet and ligamentum flavum hypertrophy. Small central disc protrusion. Osteophytic ridging. Bilateral facet arthritis. Moderate bilateral foraminal stenosis, LEFT greater than RIGHT. Mild central and bilateral subarticular recess stenosis with encroachment upon the traversing S1 nerve roots. Paravertebral soft tissues are negative. MR/MR lumbar spine wo con* [id number] IMPRESSION: 1. No acute lumbar spine fracture. 2. L4-5: Central broad-based disc protrusion and a RIGHT foraminal disc protru kit. Facet arthritis and ligamentum flavum hypertrophy. Moderate central, bila teral subarticular recess and mild foraminal stenosis. Disc encroachment upon t he traversing L5 nerve roots and the exiting RIGHT L4 nerve root. 3. L5-S1: Small central disc protrusion. Moderate bilateral foraminal stenosis due to disc osteophyte disease, LEFT greater than RIGHT. Mild central and bila teral subarticular recess stenosis. There is contact on the traversing S1 nerve roots and the exiting L5 nerve roots. 4. L3-4: Mild central and subarticular recess stenosis. Mild disc contact on t he exiting RIGHT L3 nerve root.
== END 2025-05-24 13:54 | disposition home or self-care (01) ==
LOC: RAD 13:54
PROVIDERS: PCP Emergency Medicine Emergency Medical Services; Visit Provider Psychiatry & Neurology Neurology
DX: R25.1 Tremor, unspecified (principal); R25.9 Unspecified abnormal involuntary movements; R48.2 Apraxia; R27.0 Ataxia, unspecified; M54.9 Dorsalgia, unspecified; M51.26 Other intervertebral disc displacement, lumbar region; M47.896 Other spondylosis, lumbar region; M48.062 Spinal stenosis, lumbar region with neurogenic claudication; M99.63 Osseous and subluxation stenosis of intervertebral foramina of lumbar region; M50.221 Other cervical disc displacement at C4-C5 level; M50.222 Other cervical disc displacement at C5-C6 level; M50.323 Other cervical disc degeneration at C6-C7 level; M48.02 Spinal stenosis, cervical region; M50.122 Cervical disc disorder at C5-C6 level with radiculopathy; M46.96 Unspecified inflammatory spondylopathy, lumbar region; M46.93 Unspecified inflammatory spondylopathy, cervicothoracic region; M47.814 Spondylosis without myelopathy or radiculopathy, thoracic region
CPT/HCPCS: 36415; 72141; 72146; 72148; 82306; 82607; 82746; 83735; 83921; 84425; 84439; 84443; 99212

== ENCOUNTER 2025-06-24 05:00 | Outpatient (RCR) | payer MEDICARE, OTHER, SELFPAY | END 2025-07-24 23:59 | disposition home or self-care (01) | LOC: SPT 05:00 | PROVIDERS: PCP Emergency Medicine Emergency Medical Services; Visit Provider Psychiatry & Neurology Neurology | DX: R48.2 Apraxia (principal); R27.0 Ataxia, unspecified | CPT/HCPCS: 97110; 97112; 97140; 97530 ==

== ENCOUNTER → 2025-06-30 12:57 | Outpatient (BNVA) | payer MEDICARE, OTHER, SELFPAY | PROVIDERS: PCP Emergency Medicine Emergency Medical Services; Visit Provider Orthopaedic Surgery | DX: M48.061 Spinal stenosis, lumbar region without neurogenic claudication (principal); G89.29 Other chronic pain | CPT/HCPCS: 99204 ==

== ENCOUNTER 2025-07-25 05:00 | Outpatient (RCR) | payer MEDICARE, OTHER, SELFPAY | END 2025-08-23 23:59 | disposition home or self-care (01) | LOC: SPT 05:00 | PROVIDERS: PCP Emergency Medicine Emergency Medical Services; Visit Provider Psychiatry & Neurology Neurology | DX: R48.2 Apraxia (principal) | CPT/HCPCS: 97110; 97140 ==

== ENCOUNTER 2025-09-01 14:32 | Outpatient (RCR) | payer MEDICARE, OTHER, SELFPAY | END 2025-09-23 23:59 | disposition home or self-care (01) | LOC: SPT 14:32 | PROVIDERS: PCP Emergency Medicine Emergency Medical Services; Visit Provider Psychiatry & Neurology Neurology | DX: R48.2 Apraxia (principal); R27.0 Ataxia, unspecified | CPT/HCPCS: 97110; 97140; 97530 ==

== ENCOUNTER 2025-09-24 05:00 | Outpatient (RCR) | payer MEDICARE, OTHER, SELFPAY | END 2025-10-23 23:59 | disposition home or self-care (01) | LOC: SPT 05:00 | PROVIDERS: PCP Emergency Medicine Emergency Medical Services; Visit Provider Psychiatry & Neurology Neurology | DX: R48.2 Apraxia (principal) | CPT/HCPCS: 97110; 97140; 97530 ==

== ENCOUNTER → 2025-10-04 13:55 | Outpatient (BNVA) | payer MEDICARE, OTHER, SELFPAY | PROVIDERS: PCP Emergency Medicine Emergency Medical Services; Visit Provider Orthopaedic Surgery | DX: M48.062 Spinal stenosis, lumbar region with neurogenic claudication (principal); G89.29 Other chronic pain | CPT/HCPCS: 99214 ==

== ENCOUNTER → 2025-10-12 10:00 | Outpatient (BNVA) | payer MEDICARE, OTHER, SELFPAY | PROVIDERS: PCP Emergency Medicine Emergency Medical Services; Visit Provider Specialist | DX: Z47.89 Encounter for other orthopedic aftercare (principal); Z96.652 Presence of left artificial knee joint | CPT/HCPCS: 73560; 73565; 99214 ==

== ENCOUNTER 2025-10-24 06:30 | Outpatient (RCR) | payer MEDICARE, OTHER, SELFPAY | END 2025-10-31 10:06 | disposition home or self-care (01) | LOC: SPT 06:30 | PROVIDERS: PCP Emergency Medicine Emergency Medical Services; Visit Provider Psychiatry & Neurology Neurology | DX: R27.0 Ataxia, unspecified (principal); R48.2 Apraxia | CPT/HCPCS: 97140 ==

== ENCOUNTER → 2025-11-21 05:38 | Day surgery (SDC) | payer MEDICARE, OTHER, SELFPAY ==
[2025-11-21 06:09] VITALS: BP 146/85; PULSE 78; RESP 17; TEMP 36.4; O2SAT 95; BMI 35.3
--- NOTE | 2025-11-21 06:35 | W.PM.OPSFHP ---
Same Day Surgery H&P Indication for Procedure/HPI DATE OF PROCEDURE: November 21, 2025 CHIEF COMPLAINT/INDICATIONFOR SURGICAL PROCEDURE: Back and leg pain PREOP DIAGNOSIS: Lumbar stenosis neurogenic claudication PLANNED PROCEDURE: Operation Date: 11/21/25 07:00 Proposed Procedures p Lumbar Spine Decompression(Not Applicable) - Gurjit Hargrove, DO Medications/Allergies* Home Medications ?Medication ?Instructions ?Recorded ?Confirmed ?Type levothyroxine 150 mcg capsule 150 mcg PO DAILY 06/14/24 11/21/25 History losartan 50 mg tablet 50 mg PO DAILY 06/14/24 11/21/25 History metformin 500 mg tablet 500 mg PO BID 06/14/24 11/21/25 History omeprazole 40 mg capsule,delayed 40 mg PO BID 06/14/24 11/21/25 History release potassium chloride 10 mEq oral 10 meq PO DAILY 06/14/24 11/21/25 History packet aspirin 81 mg tablet,delayed 81 mg PO DAILY 09/20/24 11/15/25 History release magnesium 200 mg tablet 200 mg PO DAILY 01/20/25 11/21/25 History pregabalin 75 mg capsule 75 mg PO TID PRN Pain, Mild 01/20/25 11/15/25 History sertraline 50 mg tablet 50 mg PO DAILY 01/20/25 11/21/25 History rivaroxaban 10 mg tablet (Xarelto) 10 mg PO DAILY 05/11/25 11/15/25 History Allergies/Adverse Reactions Allergy/AdvReac Type Severity Reaction Status Date / Time Opioids - Morphine Analogues Allergy Mild rash Verified 10/12/25 07:07 oxycodone (From Percocet) Allergy Mild ADR-Gastrointestinal Verified 10/12/25 07:07 Upset hydrocodone Allergy ADR/ALGY-Pa Verified 10/12/25 07:07 lpitations codine Allergy Mild ADR-Chest Uncoded 10/12/25 07:07 Pain tramadol Allergy Mild ADR-Gastrointestinal Uncoded 10/12/25 07:07 Upset Current Medications: Generic Name Dose Route Start Last Admin Trade Name Freq PRN Reason Stop Dose Admin Sodium Chloride 1,000 mls @ 30 mls/hr 11/21/25 06:00 11/21/25 06:28 Sodium Chloride 0.9% IV 11/22/25 05:59 30 mls/hr .Q24H ANASTACIO Administration Pertinent History/Comorbid Conditions* Social History Smoking and tobacco/nicotine status: unknown if used tobacco/nicotine Pertinent Exam Findings alert, oriented x 3 and procedure specific exam findings Recommendations Risks and benefits of procedure reviewed Surgery/Procedure today Coding Level of Care Code Acute Code for Chg Silvia
--- NOTE | 2025-11-21 06:39 | ANES.PREANE2 ---
Pre-Anesthetic Assessment Height/Weight: Height 1.68 m Weight 99.337 kg Temp Pulse Resp BP Pulse Ox O2 Del Method 97.6 F 78 17 146/85 95 Room Air 11/21/25 06:09 11/21/25 06:09 11/21/25 06:09 11/21/25 06:09 11/21/25 06:09 11/21/25 06:09 Preop Diagnosis: Lumbar stenosis neurogenic claudication Operation Date: 11/21/25 07:00 Proposed Procedures p Lumbar Spine Decompression(Not Applicable) - Gurjit Hargrove, Familial anesthetic complications: none Was Beta Dawit taken within 24 hours: N/A Was Clonidine taken within 24 hours: N/A Last intake: Intake Last Liquid Date 11/20/25 Last Liquid Time 23:50 Last Solid Date 11/20/25 Last Solid Time 23:00 Social No alcohol and No tobacco Exam alert, oriented x 3, clear to auscultation bilaterally and regular rate & rhythm Airway Mallampati: Class II Dentition: other (none) CV/HEM Hypertension Metabolic Diabetes Mellitus and Thyroid Disease Anesthetic Plan ASA status: 3 Anesthesia: General Risk of > 500 ml blood loss (7ml/kg in children): No Medications/Allergies Home Medications ?Medication ?Instructions ?Recorded ?Confirmed ?Last Taken ?Type levothyroxine 150 mcg capsule 150 mcg PO DAILY 06/14/24 11/21/25 11/20/25 History losartan 50 mg tablet 50 mg PO DAILY 06/14/24 11/21/25 11/20/25 History metformin 500 mg tablet 500 mg PO BID 06/14/24 11/21/25 11/19/25 History omeprazole 40 mg capsule,delayed 40 mg PO BID 06/14/24 11/21/25 11/20/25 History release potassium chloride 10 mEq oral 10 meq PO DAILY 06/14/24 11/21/25 11/20/25 History packet aspirin 81 mg tablet,delayed 81 mg PO DAILY 09/20/24 11/15/25 11/15/25 History release magnesium 200 mg tablet 200 mg PO DAILY 01/20/25 11/21/25 11/20/25 History pregabalin 75 mg capsule 75 mg PO TID PRN Pain, Mild 01/20/25 11/15/25 Unknown History sertraline 50 mg tablet 50 mg PO DAILY 01/20/25 11/21/25 11/20/25 History rivaroxaban 10 mg tablet (Xarelto) 10 mg PO DAILY 05/11/25 11/15/25 11/13/25 History cholecalciferol (vitamin D3) 1,250 50,000 unit PO Q7D #12 caps 05/12/25 11/21/25 11/20/25 Rx mcg (50,000 unit) capsule Allergies Allergy/AdvReac Type Severity Reaction Status Date / Time Opioids - Morphine Analogues Allergy Mild rash Verified 10/12/25 07:07 oxycodone (From Percocet) Allergy Mild ADR-Gastrointestinal Verified 10/12/25 07:07 Upset hydrocodone Allergy ADR/ALGY-Pa Verified 10/12/25 07:07 lpitations codine Allergy Mild ADR-Chest Uncoded 10/12/25 07:07 Pain tramadol Allergy Mild ADR-Gastrointestinal Uncoded 10/12/25 07:07 Upset Current Medications Generic Name Dose Route Start Last Admin Trade Name Freq PRN Reason Stop Dose Admin Sodium Chloride 1,000 mls @ 30 mls/hr 11/21/25 06:00 11/21/25 06:28 Sodium Chloride 0.9% IV 11/22/25 05:59 30 mls/hr .Q24H ANASTACIO Administration PFSH Anesthesia Social History Smoking and tobacco/nicotine status: unknown if used tobacco/nicotine Data Anesthesia 11/21/25 06:15
[2025-11-21 06:52] LABS: Blood Urea Nitrogen 18 mg/dL (8-23); Calcium 10.5 mg/dL (8.5-10.5); Carbon Dioxide 23 mmol/L (22-29); Chloride 106 mmol/L (98-107); Glucose 131 mg/dL (65-115); Osmolality Calculated 294 mOsm/kg (285-295); Sodium 140 mmol/L (136-145)
[2025-11-21 06:53] LABS: Anion Gap 15.7 (5-19); Potassium 4.7 mmol/L (3.5-5.1)
--- NOTE | 2025-11-21 08:52 | SUR.PREOP ---
0655 here to get pt for OR, Dr. Silverman here and relayed to pt that she needs to have clearance stating that her provider is aware of her hx of blood clots and being off of Xarelto for 6 days. She is cancelled but wants to call her DrZaynab and get her clearance. 0803 Dr Hargrove here and stated he would still do her surgery after his other surgery. 0845 pt called office and isn't in today and Amanda(office staff) will try to get clearance paper and call pt back,fax number given to Amanda(office staff). I notified pt and significant other that next sx scheduled for 3 hr.,pt states that she doesn't mind waiting,her deductible meant for this year.
--- NOTE | 2025-11-21 10:31 | SUR.PREOP ---
[address] [facility] with Dr. Lopez sent patient's clearance and also stated that pt needs to bridge with Lovenox 100mg bid, pt stated she wasn't told this prior to now. 1000 Dr. Farrar(anesthesiologist) informed of this information and here to talk to pt and pt verbalzed understanding. IV taken out and informed pt that we would relay Dr. Hargrove's office about rescheduling her surgery and when this is scheduled, she would need to stop Xarelto and get with Dr. Lopez's regarding when to bridge to Lovenox,pt and significant other(Mohit) verbalized understanding
== END ==
PROVIDERS: Anesthesiology; PCP Emergency Medicine Emergency Medical Services; Visit Provider Orthopaedic Surgery
PROC: (CPT 63005; principal; 2025-11-21 07:00)
DX: Z53.8 Procedure and treatment not carried out for other reasons (principal)
CPT/HCPCS: 36415; 36416; 80048; 82962; J0131; J1100; J2371; J2405; J2704; J3010; J3490; J7030; J9999

== ENCOUNTER 2025-11-23 13:18 | Day surgery (SDC) | payer MEDICARE, OTHER, SELFPAY ==
[2025-11-23] VITALS (11 sets, daily range): BP systolic 121–163; BP diastolic 69–90; PULSE 75–95; RESP 16–18; TEMP 36.3–36.8; O2SAT 94–100; BMI 35.3
--- NOTE | 2025-11-23 14:52 | W.PM.OPSUD ---
Surgery/Procedure H&P Update DATE OF PROCEDURE: November 23, 2025 DATE H&P PERFORMED: 11/21/25 H&P UPDATE INFORMATION: I have reviewed H&P completed within last 30 days, I have examined patient prior to procedure and No changes to prior documentation PREOP DIAGNOSIS: Lumbar stenosis with neurogenic claudication PLANNED PROCEDURE: Operation Date: 11/23/25 15:10 Proposed Procedures p Lumbar Spine Decompression(Not Applicable) - Gurjit Hargrove DO
[2025-11-23] MEDS: ceFAZolin 2,000 mg SDV 2000 MG IVP (15:14)
[2025-11-23] MEDS: lidocaine-epi 1% PF 1:200,000 30 mL SDV INJECTION (15:38)
--- NOTE | 2025-11-23 16:03 | PM.OP ---
Operative Report Date of procedure: November 23, 2025 Pre-op diagnosis: Lumbar stenosis with neurogenic claudication Post-op diagnosis: same Procedure done: L4/5 laminectomy with partial facetectomy Surgeon: Gurjit Hargrove DO Estimated blood loss (mL): 5 Procedure: L4/5 laminectomy with partial facetectomy Patient is brought to the operative suite. After undergoing anesthesia they are placed in the prone position. All areas of impingement are well padded. Patient is then prepped and draped in the normal sterile fashion. A skin incision is made over the L4/5 level. This is confirmed under c-arm guidance. A series of dilators are passed and the tubular retractor is docked on the L4 lamina. A bovie is used to clear the soft tissue off the lamina and the L 4/5 facet joint. A high speed guillermo is then used to perform the laminectomy and take down the medial aspect of the L 4/5 facet joint. A kerrison rongeure was then used to take down the remaining lamina and smooth the edge of the laminectomy up to the point where the ligamentum flavum attaches. Attention was then brought to the medial aspect of the facet joint. The remaining medial aspect of the superior and inferior aspect of the facet joint were taken down with the kerrison from the pedicle of L4 to L 5. The facet joint had significant hypertrophy. Attention was then brought to the Ligamentum Flavum. The ligament was taken down from the lamina of L4 to L5 and out medially to the remaining facet joint. The ligament was thick. The dura was then exposed. The dura was in good repair. The L4 nerve was then traced with a curette out the L4/5 foramen and found to be adequately decompressed. The L5 nerve was traced with a curette around the L5 pedicle. The lateral recess was opened with a kerrison helping to further decompress the L5 nerve. Wound is then irrigated copiously with saline and surgiflo is used to stop any bleeding. The tubular retractor is removed and the wound is closed with vicryl and monocryl suture. Steri strips were applied. A sterile dressing is then placed. Patient was then placed in the supine position and transferred to the PACU in stable condition.
[2025-11-23] MEDS: oxyCODONE 5 mg IR Tab/Cap PO (16:40)
== END 2025-11-23 17:20 | disposition home or self-care (01) ==
PROVIDERS: PCP Emergency Medicine Emergency Medical Services; Visit Provider Orthopaedic Surgery
PROC: (CPT 63005; principal; 2025-11-23 15:10)
DX: M48.062 Spinal stenosis, lumbar region with neurogenic claudication (principal); K21.9 Gastro-esophageal reflux disease without esophagitis; Z79.84 Long term (current) use of oral hypoglycemic drugs
CPT/HCPCS: 63047; 36416; 72020; 76000; 82962; A4649; J0690; J2704; J3010; J3490; J7030; J9999